=== PATIENT | male | born 1970 | race Caucasian/White ===

== ENCOUNTER 2017-09-08 07:47 | Day surgery (SDC) | payer OTHER ==
[~2017-09-08 07:47] MED LIST: Bupivacaine 0.5% 50 ML MDV ONE; Lidocaine 1% with EPINEPHrine 1:100,000 50 ML MDV ONE
[2017-09-08] MEDS ORDERED: Dextrose 5%-Lactated Ringers 1,000 ML IV SCH (08:15)
[2017-09-08] MEDS ORDERED: fentaNYL 100 MCG/2 ML SDV ONE ×2 (09:09→09:31)
[2017-09-08] MEDS ORDERED: Propofol 200 MG/20 ML SDV ONE ×2 (09:09→09:51)
[2017-09-08] MEDS ORDERED: Midazolam 1 MG/ML 2 ML SDV ONE ×2 (09:09→09:32)
[2017-09-08] MEDS ORDERED: ceFAZolin 2 GM in Premix Bag 1 BAG IV ONE (09:15)
[2017-09-08] MEDS ORDERED: Bupivacaine 0.5% 50 ML MDV INJECT ONE (10:13)
[2017-09-08] MEDS ORDERED: Lidocaine 1% with EPINEPHrine 1:100,000 50 ML MDV INJECT ONE (10:13)
[2017-09-08] MEDS ORDERED: hydrOXYzine HCl 100 MG/2 ML SDV IM ONE (10:33)
[2017-09-08] MEDS ORDERED: Acetaminophen/HYDROcodone 325-5 MG Tab PO PRN (11:05)
[2017-09-08 11:58] VITALS: BP 112/55
--- NOTE | 2017-09-09 08:03 | OR ---
DATE OF PROCEDURE: 09/08/2017 PREOPERATIVE DIAGNOSIS: Reducible left inguinal hernia. POSTOPERATIVE DIAGNOSIS: Reducible indirect left inguinal hernia. PROCEDURE: Repair of reducible indirect left inguinal hernia with a large PerFix mesh plug and patch. SURGEON: Leandro Gutierrez MD ANESTHESIA: IV anesthesia with monitored anesthesia care. INDICATION: This 47-year-old white male was found to have a reducible left inguinal hernia. He denies predisposing factors for hernia formation, other than doing some heavy lifting. No signs or symptoms of incarceration or obstruction. I counseled him for repair of this, including risks and alternatives, with mesh, and he gave his informed consent to proceed. DESCRIPTION OF PROCEDURE: After adequate IV anesthesia was obtained, the patient's lower abdomen, groin, and genitalia were prepped and draped in the usual sterile fashion. Time-out was held. Lidocaine 1% with epinephrine in a 50:50 mix with 0.5% Marcaine was infiltrated about the left groin. A left groin incision was made 2 cm superior and medial to the inguinal ligament. This was carried deep using Bovie cautery to the external oblique. The external oblique was opened parallel to the course of its fibers. The spermatic cord was mobilized and a Lary drain placed about it. The floor was examined and appeared to be intact. The cremasteric fibers were longitudinally to reveal an indirect hernia. This was reduced back into the abdominal cavity. The defect was such that a large plug was used. The ilioinguinal nerve was divided. The large plug was then obtained and placed down underneath the fascia through the defect. It was anchored to the underside of the fascia with horizontal mattress stitches of 3-0 Vicryl. The onlay patch was obtained, cut to appropriate length, and placed over the inguinal floor. It was anchored to itself around the spermatic cord with a horizontal mattress stitch of 2-0 Vicryl. The external oblique was closed with a running stitch of 2-0 Vicryl over the spermatic cord and the onlay patch. Additional local anesthesia was placed. Interrupted stitches of 3-0 Vicryl were placed to approximate Nain fascia and 4-0 Vicryl using a subcuticular stitch was placed to approximate the skin. Dermabond was applied. The patient tolerated the procedure well and was brought to the recovery room in a good condition. Leandro Gutierrez MD /[id number] [email or web address]
== END 2017-09-08 12:18 | disposition home or self-care (01) ==
LOC: JP.SDS 07:47
PROVIDERS: ATTEND Surgery
DX: K40.90 Unilateral inguinal hernia, without obstruction or gangrene, not specified as recurrent (principal); I50.9 Heart failure, unspecified; K21.9 Gastro-esophageal reflux disease without esophagitis; F17.210 Nicotine dependence, cigarettes, uncomplicated
CPT/HCPCS: 49505; A9270; C1781; J0690; J2250; J2704; J3010; J3410; J7042

== ENCOUNTER 2020-08-04 11:49 | Emergency (ER) | payer OTHER ==
[2020-08-04 12:03] VITALS: BP 116/74; PULSE 96
[2020-08-04] MEDS ORDERED: Ketorolac 30 MG/ML SDV IVPUSH ONE (12:28)
[2020-08-04] MEDS ORDERED: cefTRIAXone 1 GM in Sodium Chloride 0.9% 50 ML IV ONE (12:28)
[2020-08-04] MEDS ORDERED: Sodium Chloride 0.9% 1,000 ML IV SCH (12:30)
--- NOTE | 2020-08-04 12:34 | EDM.PDOC ---
ED HPI GENERAL MEDICAL PROBLEM - General Chief Complaint: ENT Problem Stated Complaint: TOOTH PAIN Time Seen by Provider: 08/04/20 12:29 Source of Information: Reports: Patient History Limitations: Reports: No Limitations - History of Present Illness INITIAL COMMENTS - FREE TEXT/NARRATIVE: pt arrived with severe pain in his rt lower molar area. He has not had any recent dental work. He thinks he has a filling that is coming out. Onset: Other (pain started last nite, He has a fair amount of facial swelling on the rt. ) Duration: Hour(s): Location: Reports: Face Associated Symptoms: Reports: No Other Symptoms - Related Data Allergies Allergy/AdvReac Type Severity Reaction Status Date / Time No Known Allergies Allergy Verified 08/04/20 12:03 Home Meds: Home Meds NK [No Known Home Meds] 09/08/17 [History] Past Medical History Gastrointestinal History: Reports: GERD Musculoskeletal History: Reports: Fracture Neurological History: Reports: Brain Injury, Head Trauma - Infectious Disease History Infectious Disease History: Reports: Chicken Pox - Past Surgical History GI Surgical History: Reports: Cholecystectomy, Hernia, Inguinal, Hernia Repair/Other Neurological Surgical History: Reports: None Musculoskeletal Surgical History: Reports: Other (See Below) Other Musculoskeletal Surgeries/Procedures:: hand surgery Dermatological Surgical History: Reports: None Social & Family History - Family History Family Medical History: No Pertinent Family History - Tobacco Use Tobacco Use Status *Q: Current Every Day Tobacco User Years of Tobacco use: 30 Packs/Tins Daily: 0.5 - Caffeine Use Caffeine Use: Reports: Coffee, Energy Drinks ED ROS ENT - Review of Systems Review Of Systems: See Below Constitutional: Reports: No Symptoms HEENT: Reports: Dental Pain Respiratory: Reports: No Symptoms Cardiovascular: Reports: No Symptoms Endocrine: Reports: No Symptoms GI/Abdominal: Reports: No Symptoms : Reports: No Symptoms Musculoskeletal: Reports: No Symptoms Skin: Reports: No Symptoms ED EXAM, ENT - Physical Exam Exam: See Below Text/Narrative:: pt developed facial swellin last nite and he clearly has pus coming from the the base of a molar, Exam Limited By: No Limitations General Appearance: Alert, Anxious, Moderate Distress Ears: Normal TMs Nose: Normal Inspection Mouth/Throat: Other (pt has a carrious tooth on the rt lower. He has alot of fascial swelling. He has pus coming from the base of the tooth. ) Head: Other (pt has significant facial swelling. ) Neck: Supple Respiratory/Chest: No Respiratory Distress Course - Vital Signs Last Recorded V/S: Last Vital Signs Temp 35.9 C L 08/04/20 12:09 Pulse 96 08/04/20 12:09 Resp 16 08/04/20 12:09 BP 116/74 08/04/20 12:09 Pulse Ox 96 08/04/20 12:09 - Orders/Labs/Meds Meds: Medications Discontinued Medications Generic Name Dose Route Start Last Admin Trade Name Freq PRN Reason Stop Dose Admin Sodium Chloride 1,000 mls @ 250 mls/hr 08/04/20 12:30 08/04/20 12:54 Normal Saline IV 250 mls/hr ASDIRECTED DANIELITO Administration Ceftriaxone Sodium 1 gm/ 50 mls @ 100 mls/hr 08/04/20 12:28 08/04/20 13:00 Sodium Chloride IV 08/04/20 12:57 100 mls/hr ONETIME ONE Administration Ketorolac Tromethamine 30 mg 08/04/20 12:28 08/04/20 12:55 Toradol IVPUSH 08/04/20 12:29 30 mg ONETIME ONE Administration - Re-Assessments/Exams Free Text/Narrative Re-Assessment/Exam: 08/04/20 12:34 pt was given rocepen, torodol and will have oral antibiotics. Departure - Departure Time of Disposition: 12:34 Disposition: Home, Self-Care 01 Condition: Fair Clinical Impression: Abscessed tooth - Discharge Information Instructions: Dental Abscess, [id number] Referrals: PCP,None [Primary Care Provider] - Forms: ED Department Discharge Care Plan Goals: appt at dental clinic, clindomycin 300mg tid, torodol 10mg q6h prn for pain. Sepsis Event Note (ED) - Evaluation Sepsis Screening Result: No Definite Risk
== END 2020-08-04 13:53 | disposition home or self-care (01) ==
LOC: JP.ED 11:49
DX: K04.7 Periapical abscess without sinus (principal); K02.9 Dental caries, unspecified; F17.210 Nicotine dependence, cigarettes, uncomplicated
CPT/HCPCS: 96365; 96375; 99282; J0696; J1885; J7030; J7050